=== PATIENT | male | born 1970 | race Caucasian/White ===

== ENCOUNTER 2017-10-21 05:50 | Emergency (ER) | payer SELFPAY ==
[2017-10-21] MEDS ORDERED: Ondansetron ODT 4 MG TAB ONE (06:27)
[2017-10-21] MEDS ORDERED: MORPHINE 10 MG/ML SYRINGE ONE (06:27)
--- NOTE | 2017-10-21 10:55 | RAD ---
3 VIEWS LEFT SHOULDER: Date: 10/21/17 HISTORY: Trauma with pain. FINDINGS: AP internally, external, and scapular Y views of left shoulder obtained. There is anterior inferior left shoulder dislocation. There are some chronic degenerative changes see n in the humeral head. Area of old ossification seen in the periclinoid soft tissues. IMPRESSION: Anterior inferior left shoulder dislocation. POS: [facility]
== END 2017-10-21 07:10 | disposition home or self-care (01) ==
LOC: MADERS 05:50
DX: S43.015A Anterior dislocation of left humerus, initial encounter (principal); X50.9XXA Other and unspecified overexertion or strenuous movements or postures, initial encounter
CPT/HCPCS: 23650; 96372; J2270; Q0162